=== PATIENT | female | born 1945 | race Caucasian/White ===

== ENCOUNTER 2018-02-14 10:35 | Emergency (ER) | payer MEDICARE ==
[2018-02-14] MEDS ORDERED: IPRATROPIUM/ALBUTEROL SULFATE 3 ML SOLUTION IH ONE (11:04)
== END 2018-02-14 11:59 | disposition home or self-care (01) ==
LOC: EDH 10:35
DX: J18.9 Pneumonia, unspecified organism (principal); E07.9 Disorder of thyroid, unspecified; I10 Essential (primary) hypertension; E78.5 Hyperlipidemia, unspecified; Z88.0 Allergy status to penicillin; Z90.710 Acquired absence of both cervix and uterus
CPT/HCPCS: 71046; 87804; 94640

== ENCOUNTER 2022-08-26 09:27 | Emergency (ER) | payer MEDICARE ==
[~2022-08-26] VITALS: Ht 167.6 cm; Wt 90.7 kg
[2022-08-26] MEDS ORDERED: AMOX500C2 PO (10:54)
[2022-08-26] MEDS ORDERED: LORA10TA7 PO (10:54)
[2022-08-26 11:15] VITALS: BP 133/74
== END 2022-08-26 11:15 | disposition home or self-care (01) ==
LOC: EDH 09:27
DX: J32.9 Chronic sinusitis, unspecified (principal); Z20.822 Contact with and (suspected) exposure to COVID-19; E78.00 Pure hypercholesterolemia, unspecified; I10 Essential (primary) hypertension
CPT/HCPCS: 99284; 71045; 87635; 87804 ×2; C9803

== ENCOUNTER → 2023-01-21 | Outpatient (CLI) | payer MEDICARE ==
[~2023-01-21] MED LIST: AMOX500C2 PO; LORA10TA7 PO
== END | disposition home or self-care (01) ==
LOC: SHCH 15:03
PROVIDERS: ATTEND Internal Medicine
DX: R01.1 Cardiac murmur, unspecified (principal); I10 Essential (primary) hypertension
CPT/HCPCS: 93306